=== PATIENT | male | born 1975 | race Caucasian/White ===

== ENCOUNTER 2017-11-08 15:13 | Emergency (ER) | payer OTHER ==
[~2017-11-08] VITALS: Ht 170.2 cm; Wt 108.8 kg
[2017-11-08 15:26] VITALS: Ht 170.2 cm; Wt 108.8 kg
[2017-11-08] MEDS ORDERED: KETOROLAC 30 MG INJ IM STA (17:13)
[2017-11-08] MEDS ORDERED: IBUP-1542 PO (17:15)
[2017-11-08] MEDS ORDERED: IBUPROFEN 600 MG TAB PO ONE (18:00)
--- NOTE | 2017-11-08 18:58 | ERD ---
ER Documentation Chief Complaint Chief Complaint Pt with R hand pain X 3 days, after GLF, no KO. HPI Is a 41-year-old male presenting to the emergency department complaining of right hand pain that radiates to his forearm and up his arm for the past few days status post ground-level fall. Patient states that he is here for pain medication he does not want any other imaging or tests. He denies head injury or loss of consciousness ROS All systems reviewed and are negative except as per history of present illness. Medications Home Meds Active Scripts Ibuprofen* (Motrin*) 600 Mg Tab, 600 MG PO Q6H Y for PAIN AND OR ELEVATED TEMP, #30 TAB Prov:CHEMA MATHEW PA-C 11/08/17 PMhx/Soc History of Surgery: No Anesthesia Reaction: No Hx Neurological Disorder: No Hx Respiratory Disorders: No Hx Cardiac Disorders: No Hx Psychiatric Problems: No Hx Miscellaneous Medical Probl: No Hx Alcohol Use: No Hx Substance Use: No Hx Tobacco Use: No Smoking Status: Never smoker Physical Exam Vitals Vital Signs Date Time Temp Pulse Resp B/P Pulse Ox O2 Delivery O2 Flow Rate FiO2 11/08/17 15:26 98.2 81 18 139/78 98 Physical Exam Const: [] Head: Atraumatic Eyes: Normal Conjunctiva ENT: Normal External Ears, Nose and Mouth. Neck: Full range of motion..~ No meningismus. Resp: Clear to auscultation bilaterally Cardio: Regular rate and rhythm, no murmurs Abd: Soft, non tender, non distended. Normal bowel sounds Skin: No petechiae or rashes Back: No midline or flank tenderness Ext: Tenderness to palpation on the second digit of the right hand, full range of motion Neur: Awake and alert Psych: Normal Mood and Affect Results 24 hrs Current Medications Medications (Trade) Dose Ordered Sig/Donte Route PRN Reason Start Time Stop Time Status Last Admin Dose Admin Ketorolac Tromethamine (Toradol) 30 mg ONCE STAT IM 11/08/17 17:13 11/08/17 17:14 DC 11/08/17 17:40 Ibuprofen (Motrin) 600 mg ONCE ONCE PO 11/08/17 18:00 11/08/17 18:01 DC 11/08/17 17:38 Procedures/MDM This is a 41-year-old male presenting to the emergency department complaining of right hand pain status post ground level fall that occurred 3 days prior to being seen. This is likely a sprain. I doubt he has any fracture dislocation. However I have offered to do imaging and patient refused. Patient states that he is here for pain medication, I have given him a prescription for ibuprofen Departure Diagnosis: Primary Impression: Injury of hand Condition: Stable Patient Instructions: Sprain Hand CHEMA MATHEW PA-C Nov 08, 2017 18:58
== END 2017-11-08 21:15 | disposition home or self-care (01) ==
LOC: FTE 15:13
DX: S69.91XA Unspecified injury of right wrist, hand and finger(s), initial encounter (principal); W18.39XA Other fall on same level, initial encounter; Y92.9 Unspecified place or not applicable
CPT/HCPCS: 96372; J1885; Z7502; Z7610